=== PATIENT | male | born 1955 | race Caucasian/White ===

== ENCOUNTER → 2017-04-27 | Outpatient (REF) | LOC: LAB 14:39 | DX: Z01.89 Encounter for other specified special examinations (principal) ==

== ENCOUNTER → 2018-02-20 | Outpatient (CLI) | payer BC ==
[2018-02-20 15:01] LABS: BUN/CREATININE RATIO 20.4 (6.0-26.0); CALCIUM 9.5 mg/dL (8.4-10.2); POTASSIUM 4.4 mmol/L (3.6-5.0)
== END ==
LOC: LAB 14:28
PROVIDERS: Nurse Practitioner Family
DX: E11.9 Type 2 diabetes mellitus without complications (principal); I10 Essential (primary) hypertension

== ENCOUNTER 2021-07-03 15:33 | Emergency (ER) | payer MEDICARE ==
[~2021-07-03] VITALS: Ht 177.8 cm; Wt 95.5 kg
[2021-07-03] MEDS ORDERED: GLUCOPHAGE PO (16:07)
[2021-07-03] MEDS ORDERED: ZESTRIL5 M1 PO (16:08)
[2021-07-03 17:32] LABS: BASO # 0.01 (0.02-0.10); EOS # 0.06 (0.04-0.40); EOS % 0.8 % (0.0-4.0); HEMATOCRIT 45.3 % (42.0-52.0); HEMOGLOBIN 15.1 g/dL (13.5-18.0); LYMPH# 1.04 (1.50-4.00); MEAN CELL VOLUME 87 fl (78-100); MEAN CORPUSCULAR HEMOGLOBIN 29 pg (27-31); MEAN CORPUSCULAR HGB CONC 33 g/dL (33-37); MEAN PLATELET VOLUME 10.1 fl (7.4-10.4); MONO # 0.63 (0.20-0.80); NEU # 6.15 (1.40-6.50); PLATELET COUNT 201 K/mm3 (130-400); RED BLOOD COUNT 5.24 M/mm3 (4.20-5.60); RED CELL DISTRIBUTION WIDTH 12.9 % (11.5-14.5); WHITE BLOOD COUNT 7.9 K/mm3 (4.8-10.8)
[2021-07-03 17:43] LABS: ALBUMIN 3.5 g/dL (3.4-4.8); POTASSIUM 3.9 mmol/L (3.5-5.1)
[2021-07-03 17:44] LABS: CALCIUM 10.5 mg/dL (8.3-10.5)
[2021-07-03 17:46] LABS: TOTAL PROTEIN 7.1 g/dL (6.2-8.1)
[2021-07-03 17:47] LABS: TOTAL BILIRUBIN 0.8 mg/dL (0.2-1.2)
[2021-07-03 18:39] LABS: D-DIMER 0.84 mg/L FEU (0.15-0.50)
[2021-07-03] MEDS ORDERED: CEPHALEXIN500 M1 PO (19:07)
[2021-07-03 19:22] VITALS: BP 132/84
== END 2021-07-03 19:20 | disposition home or self-care (01) ==
LOC: ED 15:33
PROVIDERS: Family Medicine
DX: L03.115 Cellulitis of right lower limb (principal); E11.9 Type 2 diabetes mellitus without complications; R79.1 Abnormal coagulation profile; I10 Essential (primary) hypertension; F17.210 Nicotine dependence, cigarettes, uncomplicated; Z79.84 Long term (current) use of oral hypoglycemic drugs
CPT/HCPCS: J0696; J1650

== ENCOUNTER 2021-07-05 15:48 | Outpatient (RCR) | payer MEDICARE ==
[2021-07-04 13:25] VITALS: BP 131/75
[~2021-07-05] VITALS: Ht 177.8 cm; Wt 95.5 kg
[~2021-07-05 15:48] MED LIST: CEPHALEXIN500 M1 PO; GLUCOPHAGE PO; ZESTRIL5 M1 PO
[2021-07-05 15:54] VITALS: BP 155/89
== END 2021-07-05 17:00 | disposition home or self-care (01) ==
LOC: AMSURD 15:48
DX: L98.499 Non-pressure chronic ulcer of skin of other sites with unspecified severity (principal); R60.0 Localized edema; R79.1 Abnormal coagulation profile; M79.661 Pain in right lower leg
CPT/HCPCS: J0696; J1650

== ENCOUNTER → 2021-07-06 | Outpatient (CLI) | payer MEDICARE | LOC: RAD 11:29 | DX: L03.115 Cellulitis of right lower limb (principal) ==